=== PATIENT | female | born 1960 | race Caucasian/White ===

== ENCOUNTER 2024-08-18 13:35 | Emergency (ER) | payer BC ==
[~2024-08-18] VITALS: Ht 165.1 cm; Wt 104.3 kg
[~2024-08-18 13:35] MED LIST: ASPIRIN81 MG PO; HYDROCHLOROTHIA25 MG; LOTENSIN40 MG PO; METFORMIN HCL500 M2 PO; SIMVASTATIN40 MG PO; SYNTHROID100 MCG PO
[2024-08-18 13:42] VITALS: PULSE 59; RESP 18; TEMP 97.6; O2SAT 99
[2024-08-18] MEDS ORDERED: DEXAMETHASONE SOD PHOS INJ 4 MG/ML SDV IV STA (14:34)
[2024-08-18] MEDS ORDERED: KETOROLAC TROMETHAMINE 30 MG/ML VIAL IM STA (14:34)
[2024-08-18] MEDS ORDERED: ONDANSETRON ODT4 MG PO (15:17)
[2024-08-18] MEDS ORDERED: HYDROCODON-ACE1 EA11 PO (15:17)
== END 2024-08-18 15:26 | disposition home or self-care (01) ==
LOC: FSED 13:38
DX: M25.561 Pain in right knee (principal); M79.651 Pain in right thigh; I10 Essential (primary) hypertension; E11.9 Type 2 diabetes mellitus without complications; E78.5 Hyperlipidemia, unspecified; E03.9 Hypothyroidism, unspecified
CPT/HCPCS: 93971; 99284